=== PATIENT | female | born 1960 | race Caucasian/White ===

== ENCOUNTER → 2016-06-14 | Outpatient (CLI) | payer OTHER ==
[~2016-06-14] MED LIST: ADVIN50050 INH; CHOL1000 PO; ELLIPTA INH; HYDR-5688 PO; MULT-506 PO; OMEG10007 PO; SPIR50TA2 PO; ZANTAC PO
[2016-06-14 10:51] LABS: BASO % 0.4 %; BASO ABS # 0.03 K/uL (0-0.2); COMPLETE YES; EOS % 4.2 %; HEMATOCRIT 43.1 % (37-47); IG% 0.4 %; LYMPH % 28.2 %; LYMPH ABS # 2.12 K/uL (1.2-3.4); MEAN CELL VOLUME 95.6 fL (80-100); MEAN CORPUSCULAR HEMOGLOBIN 32.2 pg (25-34); MEAN CORPUSCULAR HGB CONC 33.6 g/dl (32-36); MEAN PLATELET VOLUME 9.4 fL (7.4-10.4); MONO % 8.2 %; NEUT % 58.6 %; PLATELET COUNT 298 K/uL (130-400); RED BLOOD COUNT 4.51 M/uL (4.2-5.4); WHITE BLOOD COUNT 7.53 K/uL (4.8-10.8)
[2016-06-14 11:17] LABS: ALB/GLOB RATIO 1.1 (0.9-2); ALKALINE PHOSPHATASE 85 U/L (45-117); ALT/SGPT 37 U/L (12-78); AST/SGOT 22 U/L (15-37); BLOOD UREA NITROGEN 12 mg/dl (7-18); BUN/CREATININE RATIO 16.6 (10-20); CALCIUM 9.5 mg/dl (8.5-10.1); CARBON DIOXIDE 29 mmol/L (21-32); CHLORIDE 107 mmol/L (98-107); CHOLESTEROL 204 mg/dl (0-200); CHOLESTEROL/HDL RATIO 3.6; CREATININE 0.74 mg/dl (0.60-1.20); GLUCOSE 91 mg/dl (70-99); HDL CHOLESTEROL 56 mg/dl; LDL CHOLESTEROL CALCULATED 116 mg/dl; POTASSIUM 3.7 mmol/L (3.5-5.1); SODIUM 144 mmol/L (136-145); TRIGLYCERIDES 161 mg/dl (0-150); VERY LOW DENSITY LIPOPROT CALC 32 mg/dl
== END | disposition home or self-care (01) ==
LOC: C.LABBC 08:54
PROVIDERS: ATTEND Family Medicine
DX: Z11.59 Encounter for screening for other viral diseases (principal); Z13.0 Encounter for screening for diseases of the blood and blood-forming organs and certain disorders involving the immune mechanism; I50.30 Unspecified diastolic (congestive) heart failure; R60.9 Edema, unspecified; E78.5 Hyperlipidemia, unspecified

== ENCOUNTER → 2016-09-03 | Outpatient (CLI) | payer OTHER ==
[~2016-09-03] MED LIST changes: +OPTIRAY 320 IV PRN
--- NOTE | 2016-09-03 17:30 | DIAGNOSTIC IMAGING REPORT ---
CT HEAD COMBO CT DOSE: 1074.96 mGy.cm CLINICAL HISTORY: Headache. TECHNIQUE: Axial images of the head were obtained before and after intravenous administration of 94 cc Optiray 320 IV. COMPARISON STUDY: None. FINDINGS: No acute intracranial hemorrhage, midline shift or mass effect is present. Ventricular system is normal. Basilar cisterns are patent. There are no extra axial collections. Newell-white differentiation is maintained. There are no findings to suggest acute dural sinus thrombosis or acute territorial infarct. No intracranial mass or pathologic enhancement is present. There are no significant calvarial abnormalities. Visualized portions of the sinuses and mastoid air cells are clear. IMPRESSION: Unremarkable unenhanced and contrast-enhanced CT of the head. Electronically signed by: Lorne Aranda M.D. 09/03/2016 5:29 PM Dictated Date/Time: 09/03/2016 5:26 PM
[2016-09-03 17:55] LABS: BASO % 0.2 %; BASO ABS # 0.02 K/uL (0-0.2); COMPLETE YES; EOS % 0.2 %; HEMATOCRIT 41.6 % (37-47); IG% 0.3 %; LYMPH % 7.4 %; LYMPH ABS # 0.95 K/uL (1.2-3.4); MEAN CELL VOLUME 91.2 fL (80-100); MEAN CORPUSCULAR HEMOGLOBIN 32.2 pg (25-34); MEAN CORPUSCULAR HGB CONC 35.3 g/dl (32-36); MEAN PLATELET VOLUME 9.5 fL (7.4-10.4); MONO % 15.1 %; NEUT % 76.8 %; PLATELET COUNT 211 K/uL (130-400); RED BLOOD COUNT 4.56 M/uL (4.2-5.4); WHITE BLOOD COUNT 12.77 K/uL (4.8-10.8)
[2016-09-03 18:33] LABS: BLOOD UREA NITROGEN 15 mg/dl (7-18); BUN/CREATININE RATIO 16.9 (10-20); CALCIUM 9.4 mg/dl (8.5-10.1); CARBON DIOXIDE 31 mmol/L (21-32); CHLORIDE 97 mmol/L (98-107); CREATININE 0.87 mg/dl (0.60-1.20); GLUCOSE 122 mg/dl (70-99); POTASSIUM 3.7 mmol/L (3.5-5.1); SODIUM 133 mmol/L (136-145)
== END | disposition home or self-care (01) ==
LOC: C.CTS 16:58
PROVIDERS: ATTEND Physician Assistant Medical
DX: R51 Headache (principal)

== ENCOUNTER → 2016-09-06 | Outpatient (CLI) | payer OTHER ==
[~2016-09-06] MED LIST changes: -OPTIRAY 320 IV PRN
--- NOTE | 2016-09-06 14:28 | DIAGNOSTIC IMAGING REPORT ---
CHEST 2 VIEWS ROUTINE CLINICAL HISTORY: Elevated white blood cell count. COMPARISON STUDY: Chest radiograph May 12, 2016. FINDINGS: There is moderate right upper lobe consolidation. Left lung is clear. There is emphysema. Cardiac size is normal. Mediastinal contours are normal. IMPRESSION: 1. Moderate right upper lobe airspace opacity consistent with pneumonia. Post treatment radiographs to ensure resolution are recommended. 2. Severe emphysema. Electronically signed by: Lorne Aranda M.D. 09/06/2016 2:26 PM Dictated Date/Time: 09/06/2016 2:25 PM
== END | disposition home or self-care (01) ==
LOC: C.RADBC 14:04
PROVIDERS: ATTEND Physician Assistant Medical
DX: D72.829 Elevated white blood cell count, unspecified (principal); J43.9 Emphysema, unspecified

== ENCOUNTER → 2016-09-28 | Day surgery (SDC) | payer OTHER ==
[2016-09-24 09:48] VITALS: Ht 165.1 cm; Wt 59.1 kg
[~2016-09-28] VITALS: Ht 165.1 cm; Wt 59.1 kg
[~2016-09-28] MED LIST changes: +ATROPINE SULFATE 0.1 MG/ML 5ML SYR IV PRN; +CEFAZOLIN 2000 MG/60 ML D5W IV SCH; +EpHEDrine SULFATE 50MG/5ML SYR ONE; +EpHEDrine SULFATE INJ 50 MG/ML AMP IV PRN; +FENTANYL CITRATE INJ 50 MCG/1 ML 2 ML VIAL IV PRN; +FENTANYL CITRATE INJ 50 MCG/1 ML 2 ML VIAL ONE; +HYDROCODONE/ACETAMOPHEN 5/325MG TAB PO PRN; +LACTATED RINGER'S 1000ML 1,000 ML IV SCH; +LIDOCAINE HCL 1% 20 ML VIAL ONE; +LIDOCAINE HCL 2% 2 ML VIAL (20MG/ML) ONE; +MIDAZOLAM HCL 1 MG/ML 2ML VIAL ONE; +ONDANSETRON INJ 2 MG/ML 2 ML VIAL IV PRN; +PROPOFOL IV EMULSION 10 MG/ML 20 ML VIAL IV ONE; +SODIUM CHLORIDE 0.9% 1000ML 1,000 ML IV SCH; -SPIR50TA2 PO; -ZANTAC PO
--- NOTE | 2016-09-28 08:47 | Discharge Instructions-SurgCtr ---
Discharge Instructions Date of Service Sep 28, 2016. Visit Reason for Visit: Headache Discharge Discharge Diagnosis / Problem: headache Discharge Goals Goal(s): Decrease discomfort, Improve function, Improve disease control Activity Recommendations Activity Limitations: as noted below Lifting Limitations: gradually increase as tolerated Exercise/Sports Limitations: gradually increase as tolerated May Resume Sexual Activity: when tolerated Shower/Bathe: tomorrow Driving or Machine Use: resume 1 day after discharge SPECIAL CARE INSTRUCTIONS: * Cover incisions and change daily for comfort/drainage. * may leave uncovered with dermabond * May use ibuprofen for pain as tolerated. * Expect some swelling and bruising. Call your doctor if: * Temperature above 101 degrees * Pain not relieved by pain medicine ordered * There is increased drainage or redness from any incision * You have any unanswered questions or concerns [phone]. FOLLOW UP VISIT: If not already scheduled, please call the office for a follow-up visit. for 1-2 weeks- checkup OFFICE PHONE NUMBER: Dr. Hirsch Office Anesthesia . Post Anesthesia Instructions: If you have had General Anesthesia or IV Sedation: * Do not drive today. * Resume driving when surgeon permits. * Do not make important decisions or sign legal documents today. * Call surgeon for: 1. Temperature elevations greater than 101 degrees F. 2. Uncontrollable pain. 3. Excessive bleeding. 4. Persistent nausea and vomiting. 5. Medication intolerance (nausea, vomiting or rash). * For nausea and vomiting use only clear liquids such as: tea, soda, bouillon until nausea subsides, then gradually increase diet as tolerated. * If you have any concerns or questions, call your surgeon's office. If physician is unavailable and it is an emergency, call 911 or go to the nearest emergency room. . Diet Recommendations Home Diet: resume previous diet Pending Studies Studies pending at discharge: no Medical Emergencies . Who to Call and When: Medical Emergencies: If at any time you feel your situation is an emergency, please call 911 immediately. . Non-Emergent Contact Non-Emergency issues call your: Primary Care Provider, Surgeon . . "Provider Documentation" section prepared by Atul Hirsch. .
--- NOTE | 2016-09-28 09:15 | History & Physical Bridge - SC ---
H&P Re-Evaluation Bridge Note: I have examined the patient, reviewed the History & Physical and in the interval since the performance of the History & Physical I have noted the following changes of clinical significance: No changes noted
--- NOTE | 2016-09-28 10:09 | [facility] Post Operative Brief Note ---
Immediate Operative Summary Operative Date Sep 28, 2016. Pre-Operative Diagnosis Headache Post-Operative Diagnosis Same Procedure(s) Performed Left Temporal Artery Biopsy Surgeon Dr. Hirsch Geodesy Teacher Surgeon(s) None Estimated Blood Loss 1 ml Findings Lt temporal artery Specimens A.) Left Temporal Artery Biopsy Anesthesia local/ sedation Disposition Recovery Room / PACU
--- NOTE | 2016-09-28 10:31 | OPERATIVE REPORT ---
DATE OF OPERATION: 09/28/2016 NAME OF OPERATION: Left temporal artery biopsy. PREOPERATIVE DIAGNOSES: Headache and elevated sed rate. POSTOPERATIVE DIAGNOSES: Same. STAFF SURGEON: Dr. Atul Hirsch. ANESTHESIA: 1% plain lidocaine with sedation. DESCRIPTION OF PROCEDURE: The patient was brought into the operating room and placed on the operating table in the supine position. Her left temporal area was prepped and draped in usual fashion. 1% plain lidocaine was used to anesthetize skin and subcutaneous tissue and an incision made carrying dissection down to the fascia, identifying a small temporal artery, which was excised partly. Approximately 1.5 cm was excised and sent for routine pathology. The ends of the artery were oversewn using 4-0 chromic catgut suture, then the fascia and subcutaneous tissue were reapproximated using 4-0 chromic catgut suture and then the skin reapproximated using Dermabond. The patient was transferred to recovery room in stable condition. I attest to the content of the Intraoperative Record and any orders documented therein. Any exceptio ns are noted below.
--- NOTE | 2016-09-28 10:39 | Anesthesia Progress Nt - [facility] ---
Anesthesia Post Op Note Date & Time Sep 28, 2016 at 10:39 Vital Signs Pain Intensity: 0 Vital Signs Past 12 Hours Date Time Temp Pulse Resp B/P Pulse Ox O2 Delivery O2 Flow Rate FiO2 09/28/16 10:06 75 20 91/60 98 Room Air 09/28/16 08:40 37.1 54 16 101/54 97 Room Air Notes Mental Status: alert / awake / arousable, participated in evaluation Pt Amnestic to Procedure: Yes Nausea / Vomiting: adequately controlled Pain: adequately controlled Airway Patency, RR, SpO2: stable & adequate BP & HR: stable & adequate Hydration State: stable & adequate Anesthetic Complications: no major complications apparent
[2016-09-28 10:40] VITALS: BP 97/62; PULSE 58; O2SAT 98
== END | disposition home or self-care (01) ==
LOC: X.SURG 08:08
PROVIDERS: ATTEND Surgery
DX: R51 Headache (principal); R70.0 Elevated erythrocyte sedimentation rate; I50.30 Unspecified diastolic (congestive) heart failure; E78.5 Hyperlipidemia, unspecified; M31.6 Other giant cell arteritis; Z87.891 Personal history of nicotine dependence; Z79.899 Other long term (current) drug therapy

== ENCOUNTER → 2016-12-07 | Outpatient (CLI) | payer OTHER ==
[~2016-12-07] MED LIST changes: -ATROPINE SULFATE 0.1 MG/ML 5ML SYR IV PRN; -CEFAZOLIN 2000 MG/60 ML D5W IV SCH; -EpHEDrine SULFATE 50MG/5ML SYR ONE; -EpHEDrine SULFATE INJ 50 MG/ML AMP IV PRN; -FENTANYL CITRATE INJ 50 MCG/1 ML 2 ML VIAL IV PRN; -FENTANYL CITRATE INJ 50 MCG/1 ML 2 ML VIAL ONE; -HYDROCODONE/ACETAMOPHEN 5/325MG TAB PO PRN; -LACTATED RINGER'S 1000ML 1,000 ML IV SCH; -LIDOCAINE HCL 1% 20 ML VIAL ONE; -LIDOCAINE HCL 2% 2 ML VIAL (20MG/ML) ONE; -MIDAZOLAM HCL 1 MG/ML 2ML VIAL ONE; -ONDANSETRON INJ 2 MG/ML 2 ML VIAL IV PRN; -PROPOFOL IV EMULSION 10 MG/ML 20 ML VIAL IV ONE; -SODIUM CHLORIDE 0.9% 1000ML 1,000 ML IV SCH
--- NOTE | 2016-12-07 12:25 | MAMMOGRAPHY REPORT ---
BILATERAL DIGITAL SCREENING MAMMOGRAM WITH CAD: 12/07/2016 CLINICAL HISTORY: Routine screening. Patient has no complaints. TECHNIQUE: Current study was also evaluated with a Computer Aided Detection (CAD) system. Bilateral CC and MLO views were obtained. COMPARISON: Comparison is made to exams dated: 12/06/2015 mammogram, 11/30/2014 mammogram, 11/18/2013 ma mmogram, 11/11/2012 mammogram, 11/08/2011 ultrasound, and 11/08/2011 mammogram - [facility]. BREAST COMPOSITION: The tissue of both breasts is heterogeneously dense, which may obscure small mas ses. FINDINGS: No suspicious masses, calcifications, or areas of architectural distortion are noted in ei ther breast. There has been no significant interval change compared to prior exams. Left breast asym metries are stable compared to multiple prior exams. IMPRESSION: ACR BI-RADS CATEGORY 2: BENIGN There is no mammographic evidence of malignancy. A 1 year screening mammogram is recommended. The pa tient will receive written notification of the results. Approximately 10% of breast cancers are not detected with mammography. A negative mammographic report should not delay biopsy if a clinically suggestive mass is present. Tara Stacy M.D. /:12/07/2016 08:18:40 Brush Loader And Handle Attacher: Pamella Swift, [facility] letter sent: Normal 1/2 BI-RADS Code: ACR BI-RADS Category 2: Benign
== END | disposition home or self-care (01) ==
LOC: C.MAMM 07:54
PROVIDERS: ATTEND Physician Assistant
DX: Z12.31 Encounter for screening mammogram for malignant neoplasm of breast (principal)

== ENCOUNTER → 2017-02-19 | Outpatient (CLI) | payer OTHER ==
--- NOTE | 2017-02-19 08:36 | DIAGNOSTIC IMAGING REPORT ---
CHEST 2 VIEWS ROUTINE CLINICAL HISTORY: 56 years-old Female presenting with J18.9 Pneumonia. TECHNIQUE: PA and lateral views of the chest were obtained. COMPARISON: 09/06/2016. FINDINGS: Cardiomediastinal silhouette normal. Hyperinflation. Interval decrease in right upper lobe opacities with only minimal reticulation noted along the periphery of the minor fissure. No new focal infiltrate. No pleural effusion or pneumothorax. Osseous structures normal. Cholecystectomy clips noted. IMPRESSION: 1. Essential resolution of previously noted right upper lobe opacities. Minimal residual reticulation could be consistent with postinfectious/postinflammatory changes. No new focal infiltrate. 2. Emphysema. Electronically signed by: Kareem Avalos M.D. 02/19/2017 8:35 AM Dictated Date/Time: 02/19/2017 8:33 AM
[2017-02-19 10:53] LABS: BASO % 0.4 %; BASO ABS # 0.03 K/uL (0-0.2); COMPLETE YES; EOS % 4.4 %; IG% 0.3 %; LYMPH % 29.5 %; LYMPH ABS # 2.16 K/uL (1.2-3.4); MEAN CELL VOLUME 93.9 fL (80-100); MEAN CORPUSCULAR HEMOGLOBIN 31.2 pg (25-34); MEAN CORPUSCULAR HGB CONC 33.3 g/dl (32-36); MEAN PLATELET VOLUME 9.2 fL (7.4-10.4); MONO % 7.9 %; NEUT % 57.5 %; PLATELET COUNT 284 K/uL (130-400); WHITE BLOOD COUNT 7.33 K/uL (4.8-10.8)
[2017-02-19 11:15] LABS: BLOOD UREA NITROGEN 15 mg/dl (7-18); BUN/CREATININE RATIO 16.8 (10-20); CALCIUM 9.3 mg/dl (8.5-10.1); CARBON DIOXIDE 32 mmol/L (21-32); CHLORIDE 107 mmol/L (98-107); CREATININE 0.87 mg/dl (0.60-1.20); GLUCOSE 97 mg/dl (70-99); POTASSIUM 4.3 mmol/L (3.5-5.1); SODIUM 142 mmol/L (136-145)
== END | disposition home or self-care (01) ==
LOC: C.LABBC 08:16
PROVIDERS: ATTEND Physician Assistant
DX: J18.9 Pneumonia, unspecified organism (principal); J43.9 Emphysema, unspecified

== ENCOUNTER → 2017-06-27 | Outpatient (CLI) | payer OTHER ==
[~2017-06-27] MED LIST changes: -HYDR-5688 PO
[2017-06-27 13:57] LABS: ALBUMIN 3.8 gm/dl (3.4-5.0); ALT/SGPT 25 U/L (12-78); BLOOD UREA NITROGEN 15 mg/dl (7-18); CALCIUM 9.7 mg/dl (8.5-10.1); CARBON DIOXIDE 31 mmol/L (21-32); CHOLESTEROL 214 mg/dl (0-200); CREATININE 0.77 mg/dl (0.60-1.20); GLUCOSE 99 mg/dl (70-99); POTASSIUM 3.7 mmol/L (3.5-5.1); SODIUM 138 mmol/L (136-145)
[2017-06-27 14:00] LABS: ALKALINE PHOSPHATASE 87 U/L (45-117); AST/SGOT 16 U/L (15-37); LDL CHOLESTEROL CALCULATED 135 mg/dl; TOTAL PROTEIN 7.4 gm/dl (6.4-8.2)
== END | disposition home or self-care (01) ==
LOC: C.LABBC 09:37
PROVIDERS: ATTEND Nurse Practitioner Adult Health
DX: E78.5 Hyperlipidemia, unspecified (principal); I50.30 Unspecified diastolic (congestive) heart failure

== ENCOUNTER → 2017-08-29 | Outpatient (CLI) | payer OTHER | END | disposition home or self-care (01) | LOC: C.PAPS 12:06 | PROVIDERS: ATTEND Obstetrics & Gynecology | DX: Z01.411 Encounter for gynecological examination (general) (routine) with abnormal findings (principal); R87.612 Low grade squamous intraepithelial lesion on cytologic smear of cervix (LGSIL) ==

== ENCOUNTER → 2017-09-20 | Outpatient (CLI) | payer OTHER | END | disposition home or self-care (01) | LOC: C.PATHSPEC 13:38 | PROVIDERS: ATTEND Obstetrics & Gynecology | DX: R87.612 Low grade squamous intraepithelial lesion on cytologic smear of cervix (LGSIL) (principal); N72 Inflammatory disease of cervix uteri ==

== ENCOUNTER → 2017-10-10 | Outpatient (CLI) | payer OTHER ==
[2017-10-10 17:41] LABS: BLOOD UREA NITROGEN 22 mg/dl (7-18); CALCIUM 9.5 mg/dl (8.5-10.1); CARBON DIOXIDE 33 mmol/L (21-32); CREATININE 0.75 mg/dl (0.60-1.20); GLUCOSE 84 mg/dl (70-99); POTASSIUM 3.9 mmol/L (3.5-5.1); SODIUM 140 mmol/L (136-145)
== END | disposition home or self-care (01) ==
LOC: C.LAB 14:08
PROVIDERS: ATTEND Physician Assistant Medical
DX: R60.9 Edema, unspecified (principal)

== ENCOUNTER → 2018-01-24 | Outpatient (CLI) | payer OTHER ==
[~2018-01-24] MED LIST changes: +OPTIRAY 320 IV PRN
--- NOTE | 2018-01-24 10:58 | DIAGNOSTIC IMAGING REPORT ---
CT (CHEST) THORAX WITH CLINICAL HISTORY: 57 years-old Female presenting with SOB,DYSPNEA,PULM EMPHYSEMA. TECHNIQUE: Multidetector CT imaging of the chest was performed after the administration of intravenous contrast. IV contrast: 91 mL of Optiray 320. A dose lowering technique was used consistent with the principles of ALARA (as low as reasonably achievable). COMPARISON: 05/21/2013. CT DOSE (mGy.cm): The estimated cumulative dose is 216.86 mGy.cm. FINDINGS: Hat Blocking Operator topogram: Hyperinflation. Cholecystectomy clips. On soft tissue windows, normal thyroid and thoracic inlet. No axillary, supraclavicular, hilar, or mediastinal lymphadenopathy. Normal aorta. Normal heart size. No pericardial or pleural effusion. Cholecystectomy clips. Prominence of the biliary tree likely a reservoir effect. Suspected mixing artifact in the jejunal branch of the superior mesenteric vein (series 4 image 289). Suspected hepatic steatosis. Well-defined hypodense lesion in the spleen, possibly lymphangioma. Left upper pole renal cyst suspected. On lung windows, mild to moderate multiple bilateral solid nodules, many of which are punctate though the largest nodule is noted in the basal portion of the left lower lobe measuring 5 mm (series 4 image 204), unchanged. These nodules do not have an upper lobe predominance. Diffuse centrilobular emphysematous changes. Mild bronchial wall thickening. Central airways patent. No pneumothorax. On bone windows, normal osseous structures. IMPRESSION: 1. Emphysema with multiple bilateral solid pulmonary nodules measuring up to 5 mm in the left lower lobe. These are unchanged from prior consistent with a benign etiology. No new or suspicious pulmonary nodule. No acute intrathoracic pathology. Electronically signed by: Kareem Avalos M.D. 01/24/2018 10:57 AM Dictated Date/Time: 01/24/2018 10:46 AM
== END | disposition home or self-care (01) ==
LOC: C.CTS 10:12
PROVIDERS: ATTEND Physician Assistant
DX: R06.00 Dyspnea, unspecified (principal); J43.9 Emphysema, unspecified; R91.8 Other nonspecific abnormal finding of lung field

== ENCOUNTER 2023-09-25 08:22 | Inpatient (IN) ==
--- NOTE | 2023-09-25 09:04 | Emergency Department Note ---
Impression & Plan CHF (congestive heart failure), Non-ST elevation WI (NSTEMI), Bilateral leg edema, Elevated brain natriuretic peptide (BNP) level, Leukocytosis, Elevated procalcitonin, Acute hypoxemic respiratory failure ED Provider Note HISTORY OF PRESENT ILLNESS: Patient is a 62-year-old female presenting with bilateral lower extremity edema and shortness of breath. Patient reports for the last 3 days she has had progressively worsening swelling of her bilateral legs. States that starting yesterday she became very short of breath and is only able to take 4-5 steps before becoming winded. Reports she got up yesterday to walk from her desk to the coffee machine which is only about 10 steps and she had to sit down secondary to her lightheadedness and significant shortness of breath. She does not wear any supplemental oxygen at baseline. She states that she has a history of COPD. Denies any DVT or PE history. Denies any history of heart failure. Denies any chest pain. Denies any history of cardiac stents. Denies any recent fevers or cough. Denies any nausea or vomiting. Reports that yesterday she took 3 Lasix 20 mg tablets (total of 60 mg lasix) and her swelling continued. She has not taken any Lasix today. ROS: as above PHYSICAL EXAM: Constitutional: Patient appears in no acute distress. HENT: Head: Normocephalic and atraumatic. Eyes: EOMI, PERRL Mouth/Throat: Mucous membranes moist. Neck: Trachea midline. Neck supple. Cardiovascular: RRR, No murmurs, rubs or gallops. Intact distal pulses. Pulmonary/Chest: No respiratory distress. Breath sounds clear and equal bilaterally. Patient has saturations of 88 to 89% on room air. She was placed on 2 L supplemental oxygen. Abdominal: Abdomen soft, no tenderness, rebound or guarding. Musculoskeletal: No tenderness or deformity noted. +2 pitting edema of the bilateral lower extremities extending to the mid shins. Skin: Warm and dry. No rash, erythema, pallor or cyanosis Psychiatric: Appropriate mood and affect for situation. Neurological: Alert and keenly responsive. CN II-XII grossly intact, moving all extremities equally and fully. MDM: - Vitals signs showed hypoxia. Patient placed on supplemental 2 L nasal cannula with improvement in her saturations. - History obtained via patient. History as above. - Chronic conditions affecting care: HLD; COPD - Differential diagnoses include, but are not limited to: Congestive heart failure; acute coronary syndrome; COPD/asthma exacerbation; pulmonary edema; pulmonary embolism; pneumonia; pneumothorax; viral syndrome - Order placed for continuous cardiac monitoring. At this time, monitor showed rate of 77 bpm with normal sinus rhythm, per my interpretation. - External medical records reviewed. Cardiology visit note dated 11/01/2020 was reviewed. Patient had followed in their clinic for her shortness of breath. She had heart failure ruled out as a cause for her dyspnea. She had an echocardiogram at that time which showed normal valve and ventricular function and no significant valvular abnormalities. - EKG interpreted by myself showed normal sinus rhythm. Rate 83 bpm. QT 428. No acute ischemic changes. - Laboratory workup interpreted by myself showed leukocytosis (WBC 17.96) with left shift; normal lactate; stable electrolytes; elevated troponin (28.5); elevated BNP (200); elevated procalcitonin (6.52) - Blood cultures obtained - IV vancomycin and cefepime ordered for empiric coverage. - CXR negative for pneumonia, per my interpretation - Viral respiratory panel ordered. - UA negative for infection. - No significant fluid resuscitation was ordered for patient, as she appears fluid overloaded. Unclear source of patient's leukocytosis and procalcitonin. - Discussion was had with correctional counselor/case manager about patient's case and need for admission - Hospitalist consulted for admission - [facility] ASSESSMENT AND PLAN: Diagnosis: CHF; NSTEMI; elevated BNP; bilateral leg edema; leukocytosis; elevated procalcitonin; acute hypoxic respiratory failure Plan: admit Past Med/Surg History Medical History Chronic sinusitis Dyslipidemia H/O abnormal cells from cervix History of colon polyps Insomnia Nausea and vomiting after administration of anesthetic agent Normal left ventricular systolic function and wall motion Osteoporosis Pulmonary emphysema Uterine leiomyoma Vitamin D deficiency Surgical History H/O section History of cataract surgery History of colonoscopy History of hysteroscopy History of oral surgery S/P cholecystectomy S/P dilation and curettage S/P tonsillectomy S/P tubal ligation S/P wisdom tooth extraction Family History Father Hx of cardiac disorder Grandmother (Maternal) Colorectal cancer Other Anxiety Depression Heart disease No family history of adverse response to anesthesia Denies family history of Ovarian cancer Prostate cancer Myocardial infarction Breast cancer Social History (Updated 09/20/22 @ 10:00 by TIA Yoon) Smoking Status: Never smoker Tobacco Type: Cigarettes Age Started Using Tobacco: 13; Age Quit Using Tobacco: 49; packs per day: 1; Second Hand Exposure: Yes (hx); Do You Dip or Chew Tobacco: No; Hx Alcohol Use: Yes Alcohol type: beer Alcohol Intake Frequency: 2-4 x/Month Hx Substance Use: No Preferred Language: [place] Citizen Communication Ability: Effective Visual Impairment: Limited Hearing Ability: Normal Ensemble Member Required: No Beliefs That Will Affect Care: None marital status: / Current Living Situation: Significant Other current occupational status: employed How many Children do You have: 1 Feels Safe at Home: Yes Childhood Exposure to Second-Hand Smoke: Yes caffeine: Yes Dental Care, Regularly: No Physical Activity Frequency: Does not Exercise Seatbelt Use: always Sunscreen Use: Yes Assistive Devices: Denture - Upper and Denture - Lower Allergies Allergies Allergy/AdvReac Type Severity Reaction Status Date / Time nitrofurantoin Allergy Intermediate HIVES Verified 09/18/23 16:13 Sulfa (Sulfonamide Allergy Mild JOINT PAIN Verified 09/18/23 16:13 Antibiotics) AND STIFFNESS Home Meds Home Medications Medication Instructions Recorded Confirmed cholecalciferol (vitamin D3) 25 25 mcg PO QAM 08/05/19 09/25/23 mcg (1,000 unit) capsule furosemide 20 mg tablet 20 mg PO DAILY PRN Edema 08/05/19 09/25/23 omega-3 acid ethyl esters 1 gram 1 cap PO QAM 08/05/19 09/25/23 capsule alendronate 70 mg tablet 70 mg PO WK 07/29/23 09/25/23 Previous Rx's Medication Instructions Recorded potassium chloride 10 mEq 10 meq PO DAILY PRN with lasix #30 12/18/21 tablet,extended release tabs fluticasone fur. 100 mcg-umeclid 1 inh inhalation QAM #60 ea 09/20/22 62.5 mcg-vilant 25 mcg inhalat.powder (Trelegy Ellipta) atorvastatin 20 mg tablet 20 mg PO QAM #90 tabs 11/20/22 albuterol sulfate 90 mcg/actuation 2 puff inhalation Q6H PRN 01/24/23 aerosol inhaler shortness of breath or wheezing #8.5 grams trazodone 50 mg tablet 25 mg (1/2 x 50 mg) PO HS PRN 08/06/23 Sleep #45 tabs ondansetron 4 mg disintegrating 4 mg PO Q8H PRN nausea and 09/18/23 tablet vomiting #30 tabs Results & Data (ED) Vital Signs Vital Signs - 24 hr 09/25/23 08:29 09/25/23 08:49 09/25/23 08:50 Temperature 36.7 C Temperature Source Temporal Artery Scan Pulse Rate 87 Respiratory Rate 20 18 Respiratory Effort / Characteristics Non-Labored Respiratory Depth Normal Blood Pressure 112/49 L Blood Pressure [Right Arm] 114/71 Blood Pressure Mean 70 Blood Pressure Mean [Right Arm] 85 Pulse Oximetry 83 L 86 L 93 Oxygen Delivery Method Room Air Room Air Nasal Cannula Oxygen Flow Rate 2 Sepsis Recent Fever Within 48 Hours No Sepsis New/Unexplained Change in Mental Status N/A Sepsis Action Taken by Nursing No Action Required 09/25/23 08:56 09/25/23 09:00 Temperature Temperature Source Pulse Rate 77 Respiratory Rate Respiratory Effort / Characteristics Respiratory Depth Blood Pressure Blood Pressure [Right Arm] Blood Pressure Mean Blood Pressure Mean [Right Arm] Pulse Oximetry 94 Oxygen Delivery Method Nasal Cannula Oxygen Flow Rate 2 Sepsis Recent Fever Within 48 Hours Sepsis New/Unexplained Change in Mental Status Sepsis Action Taken by Nursing Laboratory Data 09/25/23 08:57 09/25/23 08:57 Lab Results 09/25/23 09/25/23 09/25/23 Range/Units 08:57 09:38 10:18 WBC 17.96 H (4.8-10.8) K/ul RBC 4.55 (4.20-5.40) M/uL Hgb 13.3 (12.0-16.0) g/dl Hct 41.8 (37.0-47.0) % MCV 91.9 (80.0-100.0) fL MCH 29.2 (25.0-34.0) pg MCHC 31.8 L (32.0-36.0) g/dL RDW Std Deviation 48.4 H (36.4-46.3) fL RDW Coeff of Danielle 14.8 H (11.5-14.5) % Plt Count 618 H (130-400) K/uL MPV 9.1 L (9.4-12.4) fL Immature Gran % (Auto) 2.7 % Neut % (Auto) 82.1 % Lymph % (Auto) 7.4 % Pacific % (Auto) 6.0 % Eos % (Auto) 1.4 % Baso % (Auto) 0.4 % Neut # (Auto) 14.73 H (1.40-6.50) K/uL Lymph # (Auto) 1.33 (1.20-3.40) K/uL Pacific # (Auto) 1.07 H (0.11-0.59) K/uL Eos # (Auto) 0.26 (0.00-0.50) K/uL Baso # (Auto) 0.08 (0.00-0.20) K/uL Immature Gran # (Auto) 0.49 H (0.01-0.20) K/uL PT 12.0 (9.0-12.0) Seconds INR 1.1 (0.9-1.1) VBG pH 7.45 H (7.36-7.41) VBG pCO2 58 H (38-50) mmHg VBG pO2 37 mmHg VBG HCO3 40 mmol/L VBG O2 Saturation 67.4 % VBG Base Excess 13.7 mEq/L Sodium 141 (136-145) mmol/L Potassium 3.9 (3.5-5.1) mmol/L Chloride 100 (98-107) mmol/L Carbon Dioxide 33 H (21-32) mmol/L Anion Gap 8 (3-11) BUN 15 (6-23) mg/dl Creatinine 0.73 (0.6-1.2) mg/dl Est Cr Clr Drug Dosing 69.7 ml/min Est GFR ( Amer) 100.9 ml/min Est GFR (Non-Af Amer) 87.0 ml/min BUN/Creatinine Ratio 20.5 H (10-20) Glucose 121 H (70-99(Fasting)) mg/dl Lactate 1.0 (0.4-2.0) mmol/L Calcium 8.7 (8.6-10.3) mg/dl Magnesium 2.0 (1.7-2.4) mg/dl Total Bilirubin 0.7 (0.2-1.0) mg/dl AST 15 (13-39) U/L ALT 17 (7-52) U/L Alkaline Phosphatase 103 (34-104) U/L Troponin I High Sens 28.5 H (0-14) pg/ml B-Natriuretic Peptide 200 H (0-100) pg/ml Total Protein 6.3 (6.0-8.3) gm/dl Albumin 3.3 L (3.4-5.0) gm/dl Globulin 3.0 (2.5-4.0) gm/dl Albumin/Globulin Ratio 1.1 (0.9-2) Procalcitonin 6.52 H (0-0.5) ng/ml Urine Color Yellow Urine Appearance Clear (Clear) Urine pH 7.0 (4.5-7.5) Ur Specific Hooker 1.009 (1.000-1.030) Urine Protein Negative (Negative) Urine Glucose (UA) Negative (Negative) Urine Ketones Negative (Negative) Urine Blood Negative (Negative) Urine Nitrite Negative (Negative) Urine Bilirubin Negative (Negative) Urine Urobilinogen Negative (Negative) Ur Leukocyte Esterase 1+ H (Negative) Urine WBC (Auto) 6-10 H (0-5) /hpf Urine RBC (Auto) 0-2 (0-2) /hpf U Hyaline Cast (Auto) 0-2 (0-2) /lpf U Epithel Cells (Auto) 6-10 H (0-2) /hpf Urine Bacteria (Auto) None Seen (None Seen) Imaging Data Radiologist's Impression: Chest X-Ray 09/25/23 08:36 XR chest 1V portable CLINICAL HISTORY: Dyspnea. COMPARISON STUDY: Chest radiograph February 26, 2023. Chest CT May 21, 2023. FINDINGS: Lung volumes are normal. Lungs are clear. There is underlying emphysema. There is no pneumothorax or pleural effusion. Cardiac size is normal. Mediastinal contours are normal. There is no evidence for pulmonary edema. IMPRESSION: No acute cardiopulmonary findings. Emphysema. ACT 112: Negative or not required by law. Electronically signed by: Lorne Aranda M.D. 09/25/2023 9:06 AM Discharge Plan Visit Data Chief Complaint: Swelling/Edema to Extremity Stated Complaint: SWELLING/FLUID RETENION, TROUBLE BREATHING ED Provider: Guadalupe Johnson Discharge Problem: CHF (congestive heart failure), Non-ST elevation WI (NSTEMI), Bilateral leg edema, Elevated brain natriuretic peptide (BNP) level, Leukocytosis, Elevated procalcitonin, Acute hypoxemic respiratory failure Forms Stand Alone Forms: My [facility] FastPay Prescriptions Prescriptions: No Action potassium chloride 10 mEq tablet extended release 10 meq PO DAILY PRN (Reason: with lasix) Qty: 30 11RF atorvastatin 20 mg tablet 20 mg PO QAM Qty: 90 3RF albuterol sulfate 90 mcg/actuation HFA aerosol inhaler 2 puff inhalation Q6H PRN (Reason: shortness of breath or wheezing) Qty: 8.5 5RF trazodone 50 mg tablet 25 mg PO HS PRN (Reason: Sleep) Qty: 45 1RF cholecalciferol (vitamin D3) 25 mcg (1,000 unit) capsule 25 mcg PO QAM omega-3 acid ethyl esters 1 gram capsule 1 cap PO QAM furosemide 20 mg tablet 20 mg PO DAILY PRN (Reason: Edema) Trelegy Ellipta 100-62.5-25 mcg blister with device 1 inh inhalation QAM Qty: 60 12RF Rx Instructions: TAKE 1 PUFF BY MOUTH EVERY DAY ondansetron 4 mg tablet,disintegrating 4 mg PO Q8H PRN (Reason: nausea and vomiting) Qty: 30 0RF alendronate 70 mg tablet 70 mg PO WK Referrals Referrals: Constantine Parish DO [Primary Care Provider] -
[2023-09-25 09:08] LABS: Base Excess VBG 13.7 mEq/L; HCO3 VBG 40 mmol/L; Oxygen Saturation VBG 67.4 %; PCO2 VBG 58 mmHg (38-50); PO2 VBG 37 mmHg; pH VBG 7.45 (7.36-7.41)
--- NOTE | 2023-09-25 09:08 | XRay Report ---
XR chest 1V portable CLINICAL HISTORY: Dyspnea. COMPARISON STUDY: Chest radiograph February 26, 2023. Chest CT May 21, 2023. FINDINGS: Lung volumes are normal. Lungs are clear. There is underlying emphysema. There is no pneumo thorax or pleural effusion. Cardiac size is normal. Mediastinal contours are normal. There is no evid ence for pulmonary edema. IMPRESSION: No acute cardiopulmonary findings. Emphysema. ACT 112: Negative or not required by law. Electronically signed by: Lorne Aranda M.D. 09/25/2023 9:06 AM
[2023-09-25 09:17] LABS: Basophils # (auto) 0.08 K/uL (0.00-0.20); Basophils % (auto) 0.4 %; Eosinophils # (auto) 0.26 K/uL (0.00-0.50); Eosinophils % (auto) 1.4 %; Hematocrit (blood only) 41.8 % (37.0-47.0); Hemoglobin 13.3 g/dl (12.0-16.0); Immature Granulocytes # (auto) 0.49 K/uL (0.01-0.20); Immature Granulocytes % (auto) 2.7 %; Lymphocytes # (auto) 1.33 K/uL (1.20-3.40); Lymphocytes % (auto) 7.4 %; Mean Corpuscular Hemoglobin 29.2 pg (25.0-34.0); Mean Corpuscular Hgb Conc 31.8 g/dL (32.0-36.0); Mean Corpuscular Volume 91.9 fL (80.0-100.0); Mean Platelet Volume 9.1 fL (9.4-12.4); Monocytes # (auto) 1.07 K/uL (0.11-0.59); Neutrophils # (auto) 14.73 K/uL (1.40-6.50); Neutrophils % (auto) 82.1 %; Platelet Count 618 K/uL (130-400); RDW Coefficient of Variation 14.8 % (11.5-14.5); RDW Standard Deviation 48.4 fL (36.4-46.3); Red Blood Count 4.55 M/uL (4.20-5.40); White Blood Count 17.96 K/ul (4.8-10.8)
[2023-09-25 09:34] LABS: Albumin Globulin Ratio 1.1 (0.9-2); Albumin Level 3.3 gm/dl (3.4-5.0); BUN Creatinine Ratio 20.5 (10-20); Bilirubin,Total 0.7 mg/dl (0.2-1.0); Calcium 8.7 mg/dl (8.6-10.3); Creatinine Clr Calc Pharmacy 69.7 ml/min; Est GFR (African American) 100.9 ml/min; Potassium 3.9 mmol/L (3.5-5.1); Total Protein 6.3 gm/dl (6.0-8.3)
[2023-09-25 09:40] LABS: Troponin I High Sensitivity 28.5 pg/ml (0-14)
[2023-09-25 09:44] LABS: INR 1.1 (0.9-1.1)
[2023-09-25] MEDS ORDERED: VANCOMYCIN CONSULT ACTIVE PRN (10:21)
--- NOTE | 2023-09-25 10:31 | History & Physical Report ---
Date of Service September 25, 2023 Assessment & Plan (1) Acute diastolic CHF (congestive heart failure): Plan: Worsening bilateral leg edema since Saturday 09/23 Patient took Lasix 20 mg p.o. x 3 tablets at home, which she takes as needed for leg swelling, but this did not help Unclear if patient has a prior diagnosis of CHF She does note increased SOB both with exertion and at rest x 1 week BNP elevated at 200 (no prior for comparison) Last echo on 10/24/2020 revealed LVEF at 55-60% Repeat echocardiogram ordered, pending Daily weights Strict I&O monitoring AHA, low-sodium diet Patient is clinically dry and slightly hypotensive in the ED; will hold off on diuresis at this time Lasix 20 mg IV + potassium 10mEq daily A.m. CBC, BMP (2) Pneumonia: Plan: Despite CXR without consolidation, patient presents after recent GI illness (N/V/D and chills) with an elevated leukocytosis Leukocytosis 17.96 with neutrophil predominance; afebrile Procalcitonin elevated at 6.52 UA negative BioFire negative Blood cultures drawn MRSA swab ordered, pending Vancomycin + cefepime given in the ED Given patient is at increased risk for atypical pneumonias (advanced emphysema), we will continue to cover with antibiotics Cefepime 2000 g IV q8h Doxycycline 100 mg IV BID Follow blood cx Acetaminophen as needed for pain/fever (3) Acute on chronic hypoxic respiratory failure: Plan: Patient was previously on supplemental oxygen at home, but stopped taking it as it was cost prohibitive Hypoxic at 83% SpO2 on RA on arrival VB.45/58/37/40 D-dimer (+) Chest CTA without pulmonary emboli; however, did note emphysema with mild groundglass densities and scattered irregular nodular opacities which could be infectious or inflammatory Pulmonology consulted Supplemental oxygen as needed to titrate SpO2 89-92% in setting of COPD Continuous pulse oximetry (4) Acute exacerbation of chronic obstructive pulmonary disease (COPD): Plan: COPD Gold class C/D Last PFTs 08/16/21 showed very severe obstructive lung dysfunction While acute CHF exacerbation is likely the cause of her worsening SOB at rest, patient has required rescue inhaler 45x per day over the past week which may indicated acute exacerbation Sputum culture ordered, pending Incentive spirometry Flutter valve Guaifenesin 60 mg p.o. BID Antibiotics (as above) Continue home inhalers (5) Elevated troponin: Plan: Elevated troponin 28.5--> 24.6 on arrival Clinically, patient denies chest pain, chest pressure, or pleuritic CP Continuous telemetry monitoring (6) History of tobacco use: Plan: Former tobacco cigarette smoker; quit 15 years ago (7) Bilateral leg edema: Plan [facility] Full code AHA, low-sodium diet VTE PPx: Lovenox 40 mg IV q24h History of Present Illness Chief Complaint: Swelling/Edema to Extremity Primary Care Provider: Constantine Parish DO Obed is a 62-year-old female with PMH of pulmonary emphysema, dyslipidemia, COPD, multiple pulmonary nodules, chronic bronchitis, CHF, and acute hypoxic respiratory failure. She presented for worsening bilateral lower extremity edema that began on Friday 09/22. Patient reports that her feet have swelled in the past, but never this bad. She took Lasix 20 mg x 3 tablets yesterday on 09/23, but noticed this did not make any difference. She denies erythema/pain/numbness/tingling in the lower legs bilaterally. Patient denies history of heart failure, but does note she has Lasix as needed for lower extremity edema; normally she does not take it regularly. Patient took all of h er regular morning medications today; no recent change in medications. However, last week she was feeling sick from 09/12-09/18, and was prescribed Zofran 4 mg ODT for nausea vomiting. Zofran made her nausea worse and she stopped taking it. Associated symptoms at this time were N/V/D, and chills at night for which she took Tylenol, but she denies having a fever. She does not use supplemental oxygen at home. She has used it in the past, but it has become cost prohibitive; she believes will become available again next month when her insurance changes on October 01. She does not have a pulse ox at home. No recent sick contacts. She does note that she has been having worsening SOB both at rest and with exertion x 1 week, which patient attributes to the "fluid buildup". Patient reports that the shortness of breath is not worse when she lies flat on her back, but it does cause her to cough more when she is on her back. She uses a Trelegy steroid inhaler once daily, and has noticed that she has been requiring her rescue inhaler (albuterol) up to 45 times per day. Patient denies any recent alcohol use, smoking, or tobacco use. Former tobacco cigarette smoker but quit 15 years ago. In terms of diet, she does report that she has been more sensitive to salt in recent years. Patient's vitals are stable at time of admission; SpO2 94% on 2L NC. ED Course: Vancomycin 1500 mg IV Cefepime 2000 mg IV ROS: Patient endorses LING (which patient attributes to low O2 upon waking), cough (chronic; patient states that alternates between dry and productive), SOB at rest, and increased swelling in legs x 2 days. Patient denies fever, chills, night-sweats, dizziness, lightheadedness, chest pain, chest palpitations, pleuritic CP, hemoptysis, chest pressure, orthopnea, abdominal pain, N/V/D, changes in urinary/bowel habits, burning with urination, blood in the urine/stool, or N/T/pain in the arms or legs. Allergies Allergy/AdvReac Type Severity Reaction Status Date / Time nitrofurantoin Allergy Intermediate HIVES Verified 09/18/23 16:13 Sulfa (Sulfonamide Allergy Mild JOINT PAIN Verified 09/18/23 16:13 Antibiotics) AND STIFFNESS Home Medications Medication Instructions Recorded Confirmed Type cholecalciferol (vitamin D3) 25 25 mcg PO QAM 08/05/19 09/25/23 History mcg (1,000 unit) capsule furosemide 20 mg tablet 20 mg PO DAILY PRN Edema 08/05/19 09/25/23 History omega-3 acid ethyl esters 1 gram 1 cap PO QAM 08/05/19 09/25/23 History capsule potassium chloride 10 mEq 10 meq PO DAILY PRN with lasix #30 12/18/21 09/25/23 Rx tablet,extended release tabs fluticasone fur. 100 mcg-umeclid 1 inh inhalation QAM #60 ea 09/20/22 09/25/23 Rx 62.5 mcg-vilant 25 mcg inhalat.powder (Trelegy Ellipta) atorvastatin 20 mg tablet 20 mg PO QAM #90 tabs 11/20/22 09/25/23 Rx albuterol sulfate 90 mcg/actuation 2 puff inhalation Q6H PRN 01/24/23 09/25/23 Rx aerosol inhaler shortness of breath or wheezing #8.5 grams alendronate 70 mg tablet 70 mg PO WK 07/29/23 09/25/23 History trazodone 50 mg tablet 25 mg (1/2 x 50 mg) PO HS PRN 08/06/23 09/25/23 Rx Sleep #45 tabs ondansetron 4 mg disintegrating 4 mg PO Q8H PRN nausea and 09/18/23 09/25/23 Rx tablet vomiting #30 tabs Past Med/Surg History Medical History (Updated 09/25/23 @ 11:53 by Sam Arechiga PA-C) Osteoporosis History of colon polyps Nausea and vomiting after administration of anesthetic agent Chronic sinusitis Normal left ventricular systolic function and wall motion Vitamin D deficiency Dyslipidemia Insomnia Pulmonary emphysema inhaler daily and prn--pt states she stopped using oxygen due to cost Uterine leiomyoma H/O abnormal cells from cervix Surgical History History of oral surgery History of colonoscopy last 2010 History of cataract surgery bilateral S/P wisdom tooth extraction S/P tubal ligation S/P tonsillectomy History of hysteroscopy S/P dilation and curettage S/P cholecystectomy H/O section Family History Father Hx of cardiac disorder Grandmother (Maternal) Colorectal cancer Other Anxiety Depression Heart disease No family history of adverse response to anesthesia Denies family history of Ovarian cancer Prostate cancer Myocardial infarction Breast cancer Social History (Updated 09/20/22 @ 10:00 by TIA Yoon) Smoking Status: Never smoker Tobacco Type: Cigarettes Age Started Using Tobacco: 13; Age Quit Using Tobacco: 49; packs per day: 1; Second Hand Exposure: Yes (hx); Do You Dip or Chew Tobacco: No; Hx Alcohol Use: Yes Alcohol type: beer Alcohol Intake Frequency: 2-4 x/Month Hx Substance Use: No Preferred Language: Georgian Communication Ability: Effective Visual Impairment: Limited Hearing Ability: Normal Fence Maker Required: No Beliefs That Will Affect Care: None marital status: / Current Living Situation: Significant Other current occupational status: employed How many Children do You have: 1 Feels Safe at Home: Yes Childhood Exposure to Second-Hand Smoke: Yes caffeine: Yes Dental Care, Regularly: No Physical Activity Frequency: Does not Exercise Seatbelt Use: always Sunscreen Use: Yes Assistive Devices: Denture - Upper and Denture - Lower Review of Systems Review of Systems: See HPI above Physical Exam Physical Exam: General: no acute distress; pleasant affect; non-toxic appearing; frail; coope rative; SpO2 94% on 2L NC HEENT: normocephalic, atraumatic; no scleral icterus; PERRLA; dry mucus membrane; vision and hearing grossly intact Neck: supple; no lymphadenopathy; trachea midline Skin: warm, dry without signs of tenting; no cyanosis; no rashes, bruising, lesions, or erythema noted CV: chest wall NTP; RRR; S1/S2 normal; no murmurs/rubs/gallops; pulses intact and symmetric at radial, DP, and PT Lungs: no acute respiratory distress; symmetrical chest wall expansion; diminished breath sounds across all lung dubois w/o adventitious sounds; no wheezing ABD: Soft, NTP; BS present; no rebound/guarding; no distention MSK: no tics or fasciculations; +1 pitting edema around the ankles and on the top of the feet bilaterally, nonerythematous Neuro: A&Ox3; normal mood and affect; fluent speech; no focal deficits; sensation grossly intact in the LEs b/l Results & Data Results & Data Vital Signs (Past 12 Hours) Vital Signs Temp Pulse Resp BP BP Pulse Ox O2 Del Method 09/25/23 09:00 94 Nasal Cannula 09/25/23 08:56 77 09/25/23 08:50 93 Nasal Cannula 09/25/23 08:49 18 114/71 86 L Room Air 09/25/23 08:29 36.7 C 87 20 112/49 L 83 L Room Air O2 Flow Rate 09/25/23 09:00 2 09/25/23 08:56 09/25/23 08:50 2 09/25/23 08:49 09/25/23 08:29 Laboratory Results Abnormal lab results 09/25/23 Range/Units 08:57 WBC 17.96 H (4.8-10.8) K/ul MCHC 31.8 L (32.0-36.0) g/dL RDW Std Deviation 48.4 H (36.4-46.3) fL RDW Coeff of Danielle 14.8 H (11.5-14.5) % Plt Count 618 H (130-400) K/uL MPV 9.1 L (9.4-12.4) fL Neut # (Auto) 14.73 H (1.40-6.50) K/uL Terry # (Auto) 1.07 H (0.11-0.59) K/uL Immature Gran # (Auto) 0.49 H (0.01-0.20) K/uL VBG pH 7.45 H (7.36-7.41) VBG pCO2 58 H (38-50) mmHg Carbon Dioxide 33 H (21-32) mmol/L BUN/Creatinine Ratio 20.5 H (10-20) Glucose 121 H (70-99(Fasting)) mg/dl Troponin I High Sens 28.5 H (0-14) pg/ml B-Natriuretic Peptide 200 H (0-100) pg/ml Albumin 3.3 L (3.4-5.0) gm/dl Procalcitonin 6.52 H (0-0.5) ng/ml Diagnostic Findings Chest X-Ray 09/25/23 08:36 XR chest 1V portable CLINICAL HISTORY: Dyspnea. COMPARISON STUDY: Chest radiograph February 26, 2023. Chest CT May 21, 2023. FINDINGS: Lung volumes are normal. Lungs are clear. There is underlying emphysema. There is no pneumothorax or pleural effusion. Cardiac size is normal. Mediastinal contours are normal. There is no evidence for pulmonary edema. IMPRESSION: No acute cardiopulmonary findings. Emphysema. ACT 112: Negative or not required by law. Electronically signed by: Lorne Aranda M.D. 09/25/2023 9:06 AM ECG Additional Comments: ECG revealed sinus rhythm with short MD with PACs at 83 bpm; QTc 502 (caution use of QT prolonging agents) T wave inversions in the inferior and anterolateral leads Code Status & VTE Plan Code Status Full code (Dr. Faust discussed with patient at bedside) VTE Prophylaxis Plan VTE Prophylaxis will be ordered: Yes Supervising Physician Co-Signing Physician Notes Patient seen and examined, chart reviewed, case discussed with Sam Arechiga PA-C and I agree with the assessment and plan as above except as otherwise noted Labs and images reviewed Penelope is a 62-year-old female with a past medical history of COPD, typically treated with outpatient prednisone/doxycycline, recently trialing breast try in place of Trelegy since July 2023. Was seen by cardiology 2020. Had a echo which was normal at the time, and an exercise stress test in 2018 which did not show evidence of ischemia.Seen by pulmonology 2021. Alpha-1 antitrypsin was deferred as it was not likely to have a clinical difference to her treatment course. He was recommended for nighttime oxygen at that time Presents to the ER with 2 days of bilateral extensive lower extremity swelling new from prior, increased dyspnea on exertion, and orthopnea. She feels she has not had a significant amount of wheezing, and denies sputum change. She reports that she uses Lasix as needed for history of heart failure, although her echoes have been normal. Generally her legs are skinny. She does not have any inspiratory pain or calf pain. No recent leg injuries. She has felt her heart racing.. She notes normally a single Lasix resolves any fluid accumulation, she took 3 Lasix yesterday and still has swelling in her legs which is very unusual for her. Did have GI illness last week and was drinking Gatorade daily but only 1 bottle to replace her GI losses. Swelling began fairly abruptly 3 days ago after this. Clinically at the bedside she is mildly hypotensive and tachycardic, lungs are clear and she has no JVD, and has trace ankle edema at bedside. Heart rate is regular. On ER evaluation she has a leukocytosis and markedly elevated procalcitonin at 6.52, BNP is elevated to 200 with no baseline for comparison, troponin 28.5 and trended, and EKG is with inferior T wave inversions new from prior no ter ritorial ST segment changes. UA is uninfected. She has an underlying chronic metabolic compensatory alkalosis and acute compensated respiratory acidosis on admission. Chest x-ray is without acute findings and no evidence of either lobar pneumonia or pulmonary edema. Creatinine is 0.73. She was hypoxic and tachycardic on admission. At least moderate risk for PE, although suspect infectious is more likely. CT pending; D-dimer added if this is positive we will switch to CT angio and add lower extremity Dopplers. No abdominal pain/shoulder blade pain to suggest dissection. Patient has a history of former tobacco abuse in remission since age 49, approximately 6-pack-year total history.Last PFTs 2021 Severe airflow obstruction without bronchodilator response, reduced DLCO. FEV1/FVC ratio 32, FVC 65% predicted, FEV1 26% predicted Dyspnea, ?CAP Patient presents with dyspnea, orthopnea, and some lower extremity swelling. Last echo normal, she has had no chest pain/anginal symptoms. She does have a history of severe Gold C/D COPD. She has a leukocytosis and elevated procalcitonin on admission without fever/chills/sweats. Renal function is normal. Agree with empiric treatment for potential pneumonia, chest x-ray is clear. --> +Follow-up with CT w/ PE protocol due to elevated DD Patient would like to keep most test to a minimum if at all possible as she has had significant limitation of care due to her finances but is switching over to markedly better insurance in the beginning of October when she is 63 and will transfer to Medicare. She is delaying various tests including antitrypsin and tertiary follow-up as a potential lung transplant candidate until her new insurance is available. CTA is without evidence of PE; groundglass densities and scattered nodular op acities infectious versus inflammatory are noted. Treatment for pneumonia continued as above. Patient will need a 3-month follow-up CT for reevaluation; new 7 mm right upper lobe and 5 mm left upper lobe nodules are noted subcentimeter solid nodules from 05/2023 appear generally stable. Patient will need 3-month follow-up CT for reevaluation of the irregular nodular opacities, and pulmonary patient follow-up for the new pulmonary nodules. Severe Gold C/D COPD with acute exacerbation Patient is followed by pulmonary and was recommended to follow-up with tertiary care as she was expected to be a lung transplant candidate. Patient had deferred follow-up at that time as functionally felt she was doing all right. Pending enrollmment with teriary care after next month with insurance changes. Denies recent increase in wheezing, denies change in sputum quality, color, or quantity. Continue O2, titrate to goal 89-94% Patient has difficulty affording home oxygen Patient was waiting for Medicare at age 63 for further screening and treatment due to financial issues Patient reports she never actually took Breztri prefers to stick with her Trelegy inhaler. She will have this brought in tonight and prefers to use her home Trelegy rather than being switched to any type of formulary equivalent while inpatient. Trop elevation with T wave inversions No chest pain clinically and minimally elevated troponin. Troponin trended. EKG is with inferior T wave inversions new from prior no territorial ST segment changes. Suspect demand, low suspicion for ACS on admission. - Nebs PRN - Incentive rupesh, flutter valve Agree with assessment management above PG Care Time/CCT Total # of Minutes Spent Total Time Spent with Patient: Total time spent is greater than 50% in coordination of care (as documented) at patient's floor/unit and/or counseling patient: [place] [address] INT INP/OBS CARE 3/75MIN Patient Type New History Comprehensive Exam Comprehensive Medical Decision Making High Complexity Diagnoses Acute diastolic CHF (congestive heart failure) I50.31 Pneumonia J18.9 Acute on chronic hypoxic respiratory failure J96.21 Acute exacerbation of chronic obstructive pulmonary disease (COPD) J44.1 Elevated troponin R79.89 History of tobacco use Z87.891 Bilateral leg edema R60.0
[2023-09-25 10:33] LABS: Appearance Urine Clear (Clear); Bacteria Urine Automated None Seen (None Seen); Bilirubin Urine Negative (Negative); Blood Urine Negative (Negative); Cast Urine Automated 0-2 /lpf (0-2); Color Urine Yellow; Glucose Urine UA Negative (Negative); Ketones Urine Negative (Negative); Leukocyte Esterase Urine 1+ (Negative); Nitrite Urine Negative (Negative); Protein Urine Negative (Negative); RBC Urine Automated 0-2 /hpf (0-2); Specific Gravity Urine 1.009 (1.000-1.030); Urobilinogen Urine Negative (Negative)
[2023-09-25 11:15] LABS: Adenovirus PCR Not Detected (NotDetected); Bordetella parapertussis PCR Not Detected (NotDetected); Bordetella pertussis PCR Not Detected (NotDetected); Chlamydia pneumoniae PCR Not Detected (NotDetected); Coronavirus 229E PCR Not Detected (NotDetected); Coronavirus CoV-2 (COVID19)PCR Not Detected (NotDetected); Coronavirus HKU1 PCR Not Detected (NotDetected); Coronavirus NL63 PCR Not Detected (NotDetected); Coronavirus OC43PCR Not Detected (NotDetected); Human Metapneumovirus PCR Not Detected (NotDetected); Influenza A PCR Not Detected (NotDetected); Influenza B PCR Not Detected (NotDetected); Mycoplasma pneumoniae PCR Not Detected (NotDetected); Parainfluenza Virus 1 PCR Not Detected (NotDetected); Parainfluenza Virus 2 PCR Not Detected (NotDetected); Parainfluenza Virus 3 PCR Not Detected (NotDetected); Parainfluenza Virus 4 PCR Not Detected (NotDetected); Respiratory Syncytial VirusPCR Not Detected (NotDetected); Rhinovirus/Enterovirus PCR Not Detected (NotDetected)
[2023-09-25 11:39] LABS: D Dimer 1650 ug/L FEU (0-500)
[2023-09-25] MEDS: CEFEPIME 2,000 MG/20 ML VIAL IV STA (11:41)
[2023-09-25] MEDS: VANCOMYCIN HCL 1,500 MG in SODIUM CHLORIDE 0.9% 500 ML IV ONE (11:41)
[2023-09-25] MEDS: OPTIRAY 320 125ml IV ONE (12:16)
--- NOTE | 2023-09-25 12:32 | CT Scan Report ---
CT angio chest PE protocol CT DOSE: 302.25 mGy.cm HISTORY: 62 years-old Female with PE. Acute shortness of breath TECHNIQUE: Multiple CTA images of the chest were obtained after the intravenous administration of 119 ml Optiray. Coronal and sagittal MIPS were obtained from the axial data set and were submitted for review. All measurements were obtained according to NASCET criteria. A dose lowering technique was u tilized adhering to the principles of ALARA. COMPARISON: Chest CT 05/21/2023 FINDINGS: CTA: Heart is normal in size. Moderate coronary artery calcifications. Unremarkable thoracic aorta. No pul monary emboli identified. CT CHEST: No thyroid nodule. There are a few nonspecific borderline enlarged hilar lymph nodes measuring up to 1 cm in short axis. Pneumothorax or overt pulmonary edema. Trace pleural effusions. Mild dependent hernandez bsegmental bibasilar atelectasis. Severe pulmonary emphysema with bronchial wall thickening suggestiv e of bronchitis. Mild scattered ill-defined bilateral groundglass densities. Stable 1.8 cm linear nod ular focus in the right lung apex on image 212. 7 mm irregular nodule within the right lung apex on i mage 211 is new from prior. There is additional new 5 mm solid nodule left lung apex on image 203. St able 4 mm nodules left upper lobe on image 182. Stable 6 mL nodule left lower lobe on image 73. Subpl eural bibasilar nodular densities appear generally stable. Unchanged 8 mm solid nodule in the basal r ight lower lobe on image 60 series 4. Cholecystectomy. No acute upper abdominal abnormality. 2.5 cm cyst of the superior pole left kidney. No acute fracture. IMPRESSION: 1. Emphysema with mild groundglass densities and scattered subtle irregular nodular opacities which m ay be infectious or inflammatory. Three-month follow-up chest CT recommended. 2. There are new 7 mm right upper lobe and 5 mm left upper lobe pulmonary nodules. 3. Borderline-enlarged hilar lymph nodes, likely reactive. 4. Additional subcentimeter solid pulmonary nodules appear generally stable from 05/21/2023. 5. No pulmonary emboli identified. ACT 112: Negative or not required by law. The above report was generated using voice recognition software. It may contain grammatical, syntax o r spelling errors. Electronically signed by: Nicolas Gilbert M.D. 09/25/2023 12:31 PM
[2023-09-25] MEDS ORDERED: ACETAMINOPHEN 325 MG TAB PO PRN (12:41)
[2023-09-25] MEDS ORDERED: ALBUTEROL HFA 8 GM INHALER INH PRN (12:41)
[2023-09-25] MEDS ORDERED: traZODone HCL 50 MG TAB PO PRN (12:41)
[2023-09-25] MEDS: DOXYCYCLINE HYCLATE 100 MG in DEXTROSE 5% MINI-B 100 ML IV SCH (14:59)
--- NOTE | 2023-09-25 15:45 | XCELERA ---
[id number]
--- NOTE | 2023-09-25 16:25 | Electrocardiogram Report ---
Test Reason : Blood Pressure : / mmHG Vent. Rate : 083 BPM Atrial Rate : 083 BPM P-R Int : 108 ms QRS Dur : 076 ms QT Int : 428 ms P-R-T Axes : 083 137 -88 degrees QTc Int : 502 ms Sinus rhythm with short ND with Premature atrial complexes Right axis deviation Anterior infarct , age undetermined T wave abnormality, consider inferolateral ischemia Abnormal ECG When compared with ECG of 24-SEP-2016 08:04, Premature atrial complexes are now Present T wave inversion now evident in Inferior leads T wave inversion now evident in Anterolateral leads Confirmed by Vin Cuevas ([id number]) on 09/25/2023 4:24:59 PM Referred By: REFERRED SELF Confirmed By:Vin Cuevas
--- NOTE | 2023-09-25 17:19 | Pulmonary Consultation ---
Date of Consultation September 25, 2023 Assessment & Plan (1) Acute on chronic hypoxic respiratory failure: (2) Elevated procalcitonin: (3) Elevated brain natriuretic peptide (BNP) level: (4) Chronic bronchitis: (5) Pulmonary emphysema: (6) Chronic obstructive pulmonary disease: (7) Abnormal chest CT: (8) Abnormal EKG: Plan CT chest 09/25/2023 personally reviewed: Severe centrilobular and paraseptal emphysema appreciated bilaterally Right apical 1.8 cm nodularity, another nodule 7 mm medial to it Left upper lobe 5 mm pulmonary nodule, right lower lobe supradiaphragmatic 4 mm pulmonary nodule Linear scarring of the lingula No significant mediastinal lymphadenopathy -- Acute on chronic respiratory failure with hypoxia Not compliant with oxygen at home Respiratory bio fire negative for everything Nasal MRSA negative, BNP 200 Procalcitonin 6.52, QTc 502 -- 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 On Trelegy on a daily basis along with as needed albuterol Continue with same regimen For chronic bronchitis can use Mucinex on an as-needed basis PFT 08/16/2021 personally reviewed: Very severe obstructive lung dysfunction, minimal but insignificant bronchodilator response, air trapping, moderate decrease in DLCO FVC 2.10 L 65%, FEV1 0.66 L 26%, FEV1/FVC 32%, RV 190%, TLC 114%, RV/TLC 164%, DLCO 40%, DLCO/VA 55% --Multiple pulmonary nodules Largest being 7 mm, new nodules in the left upper lobe Most of the nodules have been stable since 01/2018 Given the smoking history, patient does fall into high risk Repeat CT chest in 3 months 2D echo 09/25/2023:: EF 60-65% %, RV not well-visualized -- Nocturnal hypoxia Patient used to be on oxygen at night but unfortunately she was not able to afford the oxygen and she returned it late last year -- Allergic rhinitis with postnasal drip Advised to take [id number] antihistamine on as-needed basis --Greater than [id number] smoking history Ex-smoker Quit at the age of 49 Encouraged to continue abstinence from smoking Plan: The groundglass opacities on the CT chest could represent pulmonary edema as well but given the elevated procalcitonin will recommend to complete the course of doxycycline for 5 days Continue with cefepime Repeat CT chest in 3 months for pulmonary nodules. Follow-up sputum culture Please note the above document was generated using voice recognition software. It may contain grammatical, syntax or spelling errors.Any formal questions or concerns about the content, text or information contained within the body of this dictation should be directly addressed to the provider for clarification. History of Present Illness Attending Physician: Kareem Faust MD History of Present Illness 62-year-old female presented to the hospital with complaints of lower extremity swelling Past medical history: Dyslipidemia, anxiety Patient was by me in the office on 09/20/2022 last seen Patient's was also in the room at the time of examination. She has been noticing worsening swelling in the lower extremities since last 3 days. She usually takes Lasix on a daily basis Yesterday she took 3 pills Her shortness of breath was also little bit worse than baseline. Especially on exertion. She also had diarrhea in the last week. She was working from home. Patient says that she is compliant with her Trelegy and uses it on a daily basis Denies any cough, no hemoptysis No fever or chills No headache, no blurry vision No night sweats Social history: Greater than [id number] smoking history, quit at the age of 49, social alcohol, denies any illicit drug use. 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 No birds or poultry nearby Allergies: Seasonal Asthma: No personal or family history of asthma Lung cancer: No history of lung cancer in the family Allergies Allergy/AdvReac Type Severity Reaction Status Date / Time nitrofurantoin Allergy Intermediate HIVES Verified 09/18/23 16:13 Sulfa (Sulfonamide Allergy Mild JOINT PAIN Verified 09/18/23 16:13 Antibiotics) AND STIFFNESS Home Medications Medication Instructions Recorded Confirmed Type cholecalciferol (vitamin D3) 25 25 mcg PO QAM 08/05/19 09/25/23 History mcg (1,000 unit) capsule furosemide 20 mg tablet 20 mg PO DAILY PRN Edema 08/05/19 09/25/23 History omega-3 acid ethyl esters 1 gram 1 cap PO QAM 08/05/19 09/25/23 History capsule potassium chloride 10 mEq 10 meq PO DAILY PRN with lasix #30 12/18/21 09/25/23 Rx tablet,extended release tabs fluticasone fur. 100 mcg-umeclid 1 inh inhalation QAM #60 ea 09/20/22 09/25/23 Rx 62.5 mcg-vilant 25 mcg inhalat.powder (Trelegy Ellipta) atorvastatin 20 mg tablet 20 mg PO QAM #90 tabs 11/20/22 09/25/23 Rx albuterol sulfate 90 mcg/actuation 2 puff inhalation Q6H PRN 01/24/23 09/25/23 Rx aerosol inhaler shortness of breath or wheezing #8.5 grams alendronate 70 mg tablet 70 mg PO WK 07/29/23 09/25/23 History trazodone 50 mg tablet 25 mg (1/2 x 50 mg) PO HS PRN 08/06/23 09/25/23 Rx Sleep #45 tabs ondansetron 4 mg disintegrating 4 mg PO Q8H PRN nausea and 09/18/23 09/25/23 Rx tablet vomiting #30 tabs Patient History Medical History (Updated 09/25/23 @ 19:07 by Irish Duarte MD, [facility]) Osteoporosis History of colon polyps Nausea and vomiting after administration of anesthetic agent Chronic sinusitis Normal left ventricular systolic function and wall motion Vitamin D deficiency Dyslipidemia Insomnia Pulmonary emphysema inhaler daily and prn--pt states she stopped using oxygen due to cost Uterine leiomyoma H/O abnormal cells from cervix Surgical History History of oral surgery History of colonoscopy last 2010 History of cataract surgery bilateral S/P wisdom tooth extraction S/P tubal ligation S/P tonsillectomy History of hysteroscopy S/P dilation and curettage S/P cholecystectomy H/O section Family History Father Hx of cardiac disorder Grandmother (Maternal) Colorectal cancer Other Anxiety Depression Heart disease No family history of adverse response to anesthesia Denies family history of Ovarian cancer Prostate cancer Myocardial infarction Breast cancer Social History (Updated 09/20/22 @ 10:00 by TIA Yoon) Smoking Status: Former smoker Tobacco Type: Cigarettes Age Started Using Tobacco: 13; Age Quit Using Tobacco: 49; packs per day: 1; Second Hand Exposure: No; Do You Dip or Chew Tobacco: No; Hx Alcohol Use: Yes Alcohol type: hard liquor Alcohol Intake Frequency: 2-4 x/Month Hx Substance Use: No Preferred Language: Polish Communication Ability: Effective Visual Impairment: Limited Hearing Ability: Normal Reliability Specialist Required: No Beliefs That Will Affect Care: None marital status: / Current Living Situation: Significant Other current occupational status: employed How many Children do You have: 1 Other Information That Helps Us Care for You: No Feels Safe at Home: Yes Childhood Exposure to Second-Hand Smoke: Yes caffeine: Yes Dental Care, Regularly: No Physical Activity Frequency: Does not Exercise Seatbelt Use: always Sunscreen Use: Yes Assistive Devices: Denture - Upper, Denture - Lower and Glasses Review of Systems 2 Review of Systems: All systems reviewed & are unremarkable except as noted in HPI & below Physical Exam 2 Physical Exam: Constitutional: No acute distress HEENT: EOMI, PERRLA Respiratory system: Decreased air entry bilaterally, no wheeze, no rhonchi, no crackles CVS: S1-S2 positive, no murmurs or gallops Abdomen: Soft, nontender, nondistended, positive bowel sounds x4 Extremities: +2 pulses bilaterally radialis/ dorsalis pedis, no cyanosis, minimal pitting edema bilateral lower extremity Neuro: Awake alert oriented x3 Psych: Normal mood and affect G/U: No Ramos Skin: no rashes, warm and dry Lymphatic: no cervical or axillary lymphadenopathy Results & Data Results & Data Vital Signs (Past 12 Hours) Vital Signs Temp Pulse Pulse Resp BP BP Pulse Ox 09/25/23 16:57 72 09/25/23 16:30 72 16 98 09/25/23 16:01 111/56 L 09/25/23 16:01 78 12 96 09/25/23 16:00 110 H 24 09/25/23 15:30 98 09/25/23 15:16 74 09/25/23 15:04 77 19 96 09/25/23 15:04 100/59 L 09/25/23 15:01 77 19 97 09/25/23 15:00 78 19 98 09/25/23 14:30 79 15 99 09/25/23 14:03 78 L 09/25/23 13:30 67 19 96 09/25/23 13:27 09/25/23 13:18 65 19 98 09/25/23 13:18 106/64 09/25/23 12:41 65 12 106/64 98 09/25/23 12:41 09/25/23 11:41 70 18 98/51 L 96 09/25/23 10:25 98/51 L 09/25/23 09:00 94 09/25/23 08:56 77 09/25/23 08:50 93 09/25/23 08:49 18 114/71 86 L 09/25/23 08:29 36.7 C 87 20 112/49 L 83 L Pulse Ox O2 Del Method O2 Del Method O2 Flow Rate O2 Flow Rate 09/25/23 16:57 09/25/23 16:30 09/25/23 16:01 09/25/23 16:01 09/25/23 16:00 09/25/23 15:30 09/25/23 15:16 09/25/23 15:04 09/25/23 15:04 09/25/23 15:01 09/25/23 15:00 09/25/23 14:30 09/25/23 14:03 09/25/23 13:30 09/25/23 13:27 Nasal Cannula 1 09/25/23 13:18 09/25/23 13:18 09/25/23 12:41 Nasal Cannula 1 09/25/23 12:41 98 Nasal Cannula 1 09/25/23 11:41 Nasal Cannula 2 09/25/23 10:25 09/25/23 09:00 Nasal Cannula 2 09/25/23 08:56 09/25/23 08:50 Nasal Cannula 2 09/25/23 08:49 Room Air 09/25/23 08:29 Room Air Laboratory Results 09/25/23 08:57 09/25/23 08:57 PG Care Time/CCT Total # of Minutes Spent Total Time Spent with Patient: Total time spent is greater than 50% in coordination of care (as documented) at patient's floor/unit and/or counseling patient: Coding Level of Care Code 49553 INT INP/OBS CARE 375MIN Diagnoses Acute on chronic hypoxic respiratory failure J96.21 Elevated procalcitonin R79.89 Elevated brain natriuretic peptide (BNP) level R79.89 Chronic bronchitis J42 Pulmonary emphysema J43.9 Chronic obstructive pulmonary disease J44.[address] R93.89 Abnormal EKG R94.31
[2023-09-25] MEDS: CEFEPIME 2,000 MG in SYRINGE 0 ML IV SCH (20:51)
[2023-09-25] MEDS: ENOXAPARIN INJ 40 MG/0.4 ML SYR SQ SCH (20:54)
[2023-09-25] MEDS: guaiFENesin 600 MG TABCR PO SCH (20:54)
[2023-09-26 06:14] LABS: Basophils # (auto) 0.08 K/uL (0.00-0.20); Basophils % (auto) 0.6 %; Eosinophils % (auto) 2.8 %; Hematocrit (blood only) 36.5 % (37.0-47.0); Hemoglobin 11.3 g/dl (12.0-16.0); Immature Granulocytes # (auto) 0.14 K/uL (0.01-0.20); Lymphocytes # (auto) 1.21 K/uL (1.20-3.40); Lymphocytes % (auto) 8.5 %; Mean Corpuscular Hemoglobin 29.2 pg (25.0-34.0); Mean Corpuscular Volume 94.3 fL (80.0-100.0); Monocytes # (auto) 1.05 K/uL (0.11-0.59); Monocytes % (auto) 7.3 %; Neutrophils # (auto) 11.41 K/uL (1.40-6.50); Neutrophils % (auto) 79.8 %; Platelet Count 499 K/uL (130-400); RDW Coefficient of Variation 14.9 % (11.5-14.5); RDW Standard Deviation 50.4 fL (36.4-46.3); Red Blood Count 3.87 M/uL (4.20-5.40); White Blood Count 14.29 K/ul (4.8-10.8)
[2023-09-26 06:33] LABS: BUN Creatinine Ratio 18.5 (10-20); Calcium 8.1 mg/dl (8.6-10.3); Creatinine Clr Calc Pharmacy 78.7 ml/min; Est GFR (African American) 108.7 ml/min; Est GFR (Non-African American) 93.8 ml/min; Potassium 4.2 mmol/L (3.5-5.1)
--- NOTE | 2023-09-26 08:45 | Hospitalist Progress Note ---
Date of Service September 26, 2023 Assessment & Plan (1) Acute diastolic CHF (congestive heart failure): Plan: Echo shows preserved EF but poor view of right heart likely pulmonary HTn given severe COPD some of her shortness of breath could be pneumonia as seen as Graound Glass opacities on chest imaging AHA, low-sodium diet Patient is clinically dry and slightly hypotensive in the ED; will hold off on diuresis at this time Lasix 20 mg IV + potassium 10mEq daily to treat acute diastolic Heart failure (2) Acute on chronic hypoxic respiratory failure: Plan: Treat for Gram negative pneumonia, or atypical pneumonia Procalcitonin elevated at 6.52 UA negative, BioFire negative, Blood cultures drawn, MRSA swab negative Cefepime 2000 g IV q8h, Doxycycline 100 mg IV BID Chest CTA without pulmonary emboli; however, did note emphysema with mild groundglass densities and scattered irregular nodular opacities which could be infectious or inflammatory Pulmonology consulted Very severe obstructive lung dysfunction, FEV1 0.66 L 26%, Supplemental oxygen as needed to titrate SpO2 89-92% in setting of COPD Gold class C/D Tobacco abuse, Former tobacco cigarette smoker; quit 15 years ago (3) Elevated troponin: Plan: Elevated troponin 28.5--> 24.6 on arrival demand ischemia Clinically, patient denies chest pain, chest pressure, or pleuritic CP Plan Full code [facility], low-sodium diet VTE PPx: Lovenox 40 mg IV q24h Admission and Anticipated Discharge Date Admission Date: September 25, 2023 Results & Data Results & Data Vital Signs (Past 12 Hours) Vital Signs Temp Pulse Pulse Resp BP Pulse Ox O2 Del Method 09/26/23 08:19 98.6 F 72 16 90/55 L 94 Nasal Cannula 09/26/23 07:48 86 09/26/23 03:15 98.4 F 78 16 99/62 L 96 Nasal Cannula 09/25/23 23:46 86 09/25/23 22:59 99.1 F 86 18 97/64 L 95 Nasal Cannula 09/25/23 21:40 Nasal Cannula O2 Flow Rate 09/26/23 08:19 2 09/26/23 07:48 09/26/23 03:15 2 09/25/23 23:46 09/25/23 22:59 2 09/25/23 21:40 1 PG Care Time/CCT Total # of Minutes Spent Total Time Spent with Patient: Total time spent is greater than 50% in coordination of care (as documented) at patient's floor/unit and/or counseling patient: Coding Diagnoses Acute diastolic CHF (congestive heart failure) I50.31 Acute on chronic hypoxic respiratory failure J96.21 Elevated troponin R79.89
[2023-09-26] MEDS: POTASSIUM CHLORIDE 10 MEQ TABCR PO SCH (08:55)
[2023-09-26] MEDS: ATORVASTATIN 20 MG TAB PO SCH (08:58)
[2023-09-26] MEDS: FUROSEMIDE INJ 20 MG/2 ML VIAL IV SCH (08:58)
[2023-09-26] MEDS: FLUTICASONE FUROATE 100MCG 14 PUFFS/INHALER INH SCH (08:59)
[2023-09-26] MEDS: UMECLIDINIUM/VILANTEROL 62.5/25MCG 7 PUFFS/INHALER INH SCH (08:59)
[2023-09-26] MEDS ORDERED: NON-FORMULARY MEDICATION (Fluticasone-Umeclidin-Vilanter [Trelegy Ellipta] 100-62.5-25 mcg INH SCH (09:00)
--- NOTE | 2023-09-26 14:24 | Pulmonology Progress Note ---
Date of Service September 26, 2023 Assessment & Plan (1) Acute on chronic hypoxic respiratory failure: (2) Elevated procalcitonin: (3) Elevated brain natriuretic peptide (BNP) level: (4) Chronic bronchitis: (5) Pulmonary emphysema: (6) Chronic obstructive pulmonary disease: (7) Abnormal chest CT: (8) Abnormal EKG: Plan CT chest 09/25/2023 personally reviewed: Severe centrilobular and paraseptal emphysema appreciated bilaterally Right apical 1.8 cm nodularity, another nodule 7 mm medial to it Left upper lobe 5 mm pulmonary nodule, right lower lobe supradiaphragmatic 4 mm pulmonary nodule Linear scarring of the lingula No significant mediastinal lymphadenopathy -- Acute on chronic respiratory failure with hypoxia Not compliant with oxygen at home Respiratory bio fire negative for everything Nasal MRSA negative, BNP 200 Procalcitonin 6.52, QTc 502 -- 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 On Trelegy on a daily basis along with as needed albuterol Continue with same regimen For chronic bronchitis can use Mucinex on an as-needed basis PFT 08/16/2021 personally reviewed: Very severe obstructive lung dysfunction, minimal but insignificant bronchodilator response, air trapping, moderate decrease in DLCO FVC 2.10 L 65%, FEV1 0.66 L 26%, FEV1/FVC 32%, RV 190%, TLC 114%, RV/TLC 164%, DLCO 40%, DLCO/VA 55% --Multiple pulmonary nodules Largest being 7 mm, new nodules in the left upper lobe Most of the nodules have been stable since 01/2018 Given the smoking history, patient does fall into high risk Repeat CT chest in 3 months 2D echo 09/25/2023:: EF 60-65% %, RV not well-visualized -- Nocturnal hypoxia Patient used to be on oxygen at night but unfortunately she was not able to afford the oxygen and she returned it late last year -- Allergic rhinitis with postnasal drip Advised to take [id number] antihistamine on as-needed basis --Greater than 26-[id number]-[id number] smoking history Ex-smoker Quit at the age of 49 Encouraged to continue abstinence from smoking Plan: Complete the course of antibiotics for total of [address] chest in 3 months for pulmonary nodules. Follow-up sputum culture Recommend ice packs for the left forearm phlebitis. Nurse was made aware to remove the line as soon as possible No further recommendation from pulmonary perspective, will sign off Please call directly with any questions Please note the above document was generated using voice recognition software. It may contain grammatical, syntax or spelling errors.Any formal questions or concerns about the content, text or information contained within the body of this dictation should be directly addressed to the provider for clarification. Admission and Anticipated Discharge Date Admission Date: September 25, 2023 Subjective Patient seen and examined at bedside. No acute distress. The patient was complaining of pain in the left forearm where she had the IV site. There was evident phlebitis. Breathing [place]ague she is doing well. She has been urinating well. Denies any chest pain, no significant chest congestion Fair appetite Patient was saturating 97% on 1 L oxygen. I took her off oxygen Review of Systems 2 Review of Systems: All systems reviewed & are unremarkable except as noted in Subjective Physical Exam 2 Physical Exam: Constitutional: No acute distress HEENT: EOMI, PERRLA Respiratory system: Decreased air entry bilaterally, no wheeze, no rhonchi, no crackles CVS: S1-S2 positive, no murmurs or gallops Abdomen: Soft, nontender, nondistended, positive bowel sounds x4 Extremities: +2 pulses bilaterally radialis/ dorsalis pedis, no cyanosis, minimal pitting edema bilateral lower extremity Neuro: Awake alert oriented x3 Psych: Normal mood and affect G/U: No Ramos Skin: Left forearm phlebitis with tenderness around the IV site Skin: no rashes, warm and dry Lymphatic: no cervical or axillary lymphadenopathy Results & Data Results & Data Vital Signs (Past 12 Hours) Vital Signs Temp Pulse Pulse Resp BP Pulse Ox O2 Del Method 09/26/23 11:35 36.7 C 76 16 92/57 L 96 Nasal Cannula 09/26/23 08:19 37.0 C 72 16 90/55 L 94 Nasal Cannula 09/26/23 08:00 Nasal Cannula 09/26/23 07:48 86 09/26/23 03:15 36.9 C 78 16 99/62 L 96 Nasal Cannula O2 Flow Rate 09/26/23 11:35 1 09/26/23 08:19 2 09/26/23 08:00 1 09/26/23 07:48 09/26/23 03:15 2 Laboratory Results 09/26/23 05:53 09/26/23 05:53 PG Care Time/CCT Total # of Minutes Spent Total Time Spent with Patient: Total time spent is greater than 50% in coordination of care (as documented) at patient's floor/unit and/or counseling patient: Coding Level of Care Code 09690 SUB INP/OBS CARE 2/35MIN Diagnoses Acute on chronic hypoxic respiratory failure J96.21 Elevated procalcitonin R79.89 Elevated brain natriuretic peptide (BNP) level R79.89 Chronic bronchitis J42 Pulmonary emphysema J43.9 Chronic obstructive pulmonary disease J44.[address] R93.89 Abnormal EKG R94.31
--- NOTE | 2023-09-26 19:09 | Discharge Summary ---
Discharge Summary Date of Service September 26, 2023 Notes For Next Care Provider Patient had fairly rapid resolution of her lower extremity edema this is likely a combination of pre-existing illness distressing diastolic heart failure. I encouraged the patient to weigh herself daily and bring weights to the office although she was reluctant regarding this. She was counseled once salt restriction also. For the consideration of possible infectious process pulmonary medicine recomme nded that she complete a course of doxycycline which she was prescribed at time of discharge Admission HPI Per Admitting Provider Obed is a 62-year-old female with PMH of pulmonary emphysema, dyslipidemia, COPD, multiple pulmonary nodules, chronic bronchitis, CHF, and acute hypoxic respiratory failure. She presented for worsening bilateral lower extremity edema that began on Friday 09/22. Patient reports that her feet have swelled in the past, but never this bad. She took Lasix 20 mg x 3 tablets yesterday on 09/02, but noticed this did not make any difference. She denies erythema/pain/numbness/tingling in the lower legs bilaterally. Patient denies history of heart failure, but does note she has Lasix as needed for lower extremity edema; normally she does not take it regularly. Patient took all of her regular morning medications today; no recent change in medications. However, last week she was feeling sick from 09/12-09/18, and was prescribed Zofran 4 mg ODT for nausea vomiting. Zofran made her nausea worse and she stopped taking it. Associated symptoms at this time were N/V/D, and chills at night for which she took Tylenol, but she denies having a fever. She does not use supplemental oxygen at home. She has used it in the past, but it has become cost prohibitive; she believes will become available again next month when her insurance changes on October 01. She does not have a pulse ox at home. No recent sick contacts. She does note that she has been having worsening SOB both at rest and with exertion x 1 week, which patient attributes to the "fluid buildup". Patient reports that the shortness of breath is not worse when she lies flat on her back, but it does cause her to cough more when she is on her back. She uses a Trelegy steroid inhaler once daily, and has noticed that she has been requiring her rescue inhaler (albuterol) up to 45 times per day. Patient denies any recent alcohol use, smoking, or tobacco use. Former tobacco cigarette smoker but quit 15 years ago. In terms of diet, she does report that she has been more sensitive to salt in recent years. Patient's vitals are stable at time of admission; SpO2 94% on 2L NC. ED Course: Vancomycin 1500 mg IV Cefepime 2000 mg IV ROS: Patient endorses LING (which patient attributes to low O2 upon waking), cough (chronic; patient states that alternates between dry and productive), SOB at rest, and increased swelling in legs x 2 days. Patient denies fever, chills, night-sweats, dizziness, lightheadedness, chest pain, chest palpitations, pleuritic CP, hemoptysis, chest pressure, orthopnea, abdominal pain, N/V/D, changes in urinary/bowel habits, burning with urination, blood in the urine/stool, or N/T/pain in the arms or legs. Principal Dx & Hospital Course #1 = Principal Diagnosis (1) Acute diastolic CHF (congestive heart failure): Echo shows preserved EF but poor view of right heart likely pulmonary HTn given severe COPD some of her shortness of breath could be pneumonia as seen as [place] Glass opacities on chest imaging AHA, low-sodium diet Lasix 20 mg IV + potassium 10mEq x 1 dose treat acute diastolic Heart failure (2) Acute on chronic hypoxic respiratory failure: Treat for Gram negative pneumonia, or atypical pneumonia Procalcitonin elevated at 6.52 UA negative, BioFire negative, Blood cultures drawn, MRSA swab negative Discharged on doxycycline 100 mg twice daily Chest CTA without pulmonary emboli; however, did note emphysema with mild groundglass densities and scattered irregular nodular opacities which could be infectious or inflammatory Pulmonology consulted Very severe obstructive lung dysfunction, FEV1 0.66 L 26%, Supplemental oxygen as needed to titrate SpO2 89-92% in setting of COPD Gold class C/D Tobacco abuse, Former tobacco cigarette smoker; quit 15 years ago (3) Elevated troponin: Elevated troponin 28.5--> 24.6 on arrival demand ischemia Clinically, patient denies chest pain, chest pressure, or pleuritic CP Plan Full code Discharge Exam Awake alert appropriate no respiratory distress speaking in full sentences. Pulm exam is with some diminished air movement prolonged exhalation phase but otherwise clear Extremities are completely without edema at this time Updated Medication List Medication Instructions Recorded Confirmed Type cholecalciferol (vitamin D3) 25 25 mcg PO QAM 08/05/19 09/25/23 History mcg (1,000 unit) capsule furosemide 20 mg tablet 20 mg PO DAILY PRN Edema 08/05/19 09/25/23 History omega-3 acid ethyl esters 1 gram 1 cap PO QAM 08/05/19 09/25/23 History capsule potassium chloride 10 mEq 10 meq PO DAILY PRN with lasix #30 12/18/21 09/25/23 Rx tablet,extended release tabs fluticasone fur. 100 mcg-umeclid 1 inh inhalation QAM #60 ea 09/20/22 09/25/23 Rx 62.5 mcg-vilant 25 mcg inhalat.powder (Trelegy Ellipta) atorvastatin 20 mg tablet 20 mg PO QAM #90 tabs 11/20/22 09/25/23 Rx albuterol sulfate 90 mcg/actuation 2 puff inhalation Q6H PRN 01/24/23 09/25/23 Rx aerosol inhaler shortness of breath or wheezing #8.5 grams alendronate 70 mg tablet 70 mg PO WK 07/29/23 09/25/23 History trazodone 50 mg tablet 25 mg (1/2 x 50 mg) PO HS PRN 08/06/23 09/25/23 Rx Sleep #45 tabs ondansetron 4 mg disintegrating 4 mg PO Q8H PRN nausea and 09/18/23 09/25/23 Rx tablet vomiting #30 tabs doxycycline hyclate 100 mg capsule 100 mg PO BID 5 days #10 caps 09/26/23 Rx Hospital Stay Data Consultations 09/25/23 10:36 ED Decision to Admit Stat 09/25/23 13:21 Consult Pulmonology Routine Diagnostic Imagining Performed 09/25/23 11:42 CT angio chest PE protocol Stat Pending Results Patient Have Any Pending Studies at Discharge: No Discharge Instructions Given to Patient (Per Discharging Provider) please continue your antibiotics until finished Call 911 and go to the Emergency Room if: * You have tightness or pain in your chest that does not go away with rest or Nitroglycerin * You are very short of breath even with rest Call your doctor if any of the following symptoms or problems start or get worse: * Shortness of breath or difficulty breathing * Wake up at night short of breath * Chest pain * Cough * Swelling of your hands, fee, or legs * More fatigued or tired with your normal activity * Palpitations - sudden fast heart beats WEIGHT * Weigh yourself every morning after using the bathroom. * Use the same scale. * Wear the same amount of clothing. * Write your weight down on your chart. * Call your doctor if you gain more than 2-3 pounds in 1-2 days. MEDICATIONS * Use this discharge instruction sheet for instructions. * Take your medications at the time your doctor ordered. * Do not skip a dose of your medicines. * If you miss a dose of medicine, take as soon as possible, but DO NOT DOUBLE A DOSE. * Read your medicine information when you get home. * Know all of the side effects of your medicine. * Call your doctor's office if you have any side effects. * Be sure all of your doctors know what medicine and herbs you take (including cold, flu, and herbal medicine). * Pain Medicine: If you do not get relief from your pain, please call your doctor for help. Take the following with you to your follow-up doctor appointments: * Weight Chart * Medication List * List of questions Do not drink excessive alcohol, beer or wine. Total Time Total Time Spent Total Time Spent (In Minutes): It required greater than 30 minutes to prepare this patient for discharge. Coding Level of Care Code 61549 INP/OBS DISCH >30 MIN Diagnoses Acute diastolic CHF (congestive heart failure) I50.31 Acute on chronic hypoxic respiratory failure J96.21 Elevated troponin R79.89
== END 2023-09-26 17:00 | disposition home or self-care (01) | DRG 291 ==
LOC: ED 08:22 → SUATTDRO 11:15 → EDINP 11:15 → 2W 12:41
DX: J44.0 Chronic obstructive pulmonary disease with (acute) lower respiratory infection; J44.1 Chronic obstructive pulmonary disease with (acute) exacerbation; Z87.891 Personal history of nicotine dependence; Z11.52 Encounter for screening for COVID-19; I50.31 Acute diastolic (congestive) heart failure; J15.69 Pneumonia due to other Gram-negative bacteria; I27.23 Pulmonary hypertension due to lung diseases and hypoxia; J96.21 Acute and chronic respiratory failure with hypoxia; I24.89 Other forms of acute ischemic heart disease; Z91.198 Patient's noncompliance with other medical treatment and regimen for other reason; Z79.899 Other long term (current) drug therapy; E78.5 Hyperlipidemia, unspecified; J43.9 Emphysema, unspecified